=== PATIENT | male | born 1955 | race Caucasian/White ===

== ENCOUNTER 2017-09-03 11:39 | Day surgery (SDC) | payer OTHER ==
[2017-09-03] MEDS ORDERED: NS 1,000 ML IV ONE (11:43)
[2017-09-03] MEDS ORDERED: diphenhydrAMINE 25 MG CAP PO ONE ×2 (11:43→11:54)
[2017-09-03] MEDS ORDERED: MIDAZOLAM 2 MG/2 ML VIAL ONE ×3 (11:43→12:39)
[2017-09-03] MEDS ORDERED: fentaNYL 100 MCG/2 ML INJ ONE ×3 (11:43→13:11)
[2017-09-03] MEDS ORDERED: DIAZEPAM 5 MG TAB PO ONE (11:43)
[2017-09-03] MEDS ORDERED: ASPIRIN EC 325 MG TAB PO ONE ×2 (11:43→11:54)
[2017-09-03] MEDS ORDERED: FAMOTIDINE 20 MG TAB PO ONE (11:43)
[2017-09-03] MEDS ORDERED: BIVALIRUDIN 250 MG/5 ML VIAL IV ONE (11:43)
[2017-09-03] MEDS ORDERED: IOPAMIDOL (ISOVUE-370) 150 ML BTL IV ONE (11:44)
[2017-09-03] MEDS ORDERED: FAMOTIDINE 20 MG TAB ONE (11:54)
[2017-09-03] MEDS ORDERED: DIAZEPAM 5 MG TAB ONE (11:55)
--- NOTE | 2017-09-03 12:01 | CPEKG ---
Heart Rate: 70 RR Interval: 857 P-R Interval: 184 QRSD Interval: 106 QT Interval: 384 QTC Interval: 415 P [place]: 38 QRS [place]: -45 T Wave [place]: 51 EKG Severity - ABNORMAL ECG - EKG Impression: SINUS RHYTHM EKG Impression: LAD, CONSIDER LEFT ANTERIOR FASCICULAR BLOCK Electronically Signed By: Roland Henao 03-Sep-2017 20:35:46
[2017-09-03 12:03] LABS: % IMMATURE GRANULYOCYTES 0.3 % (0.0-1.1); ABSOLUTE IMMATURE GRANULOCYTES 0.03 10^3/uL (0.00-0.10); ADD DIFF? NO; ADD MORPH? NO; ADD SCAN? NO; ATYPICAL LYMPHOCYTE FLAG 0 (0-99); FRAGMENT RBC FLAG 0 (0-99); HEMATOCRIT 49.1 % (40.0-51.0); HEMOGLOBIN 16.9 g/dL (13.7-17.5); LEFT SHIFT FLG 0 (0-99); LIPEMIA HEMOLYSIS FLAG 90 (0-99); MEAN CELL HEMOGLOBIN 32.1 pg (27.9-34.1); MEAN CELL HEMOGLOBIN CONCENTR. 34.4 g/dL (32.4-36.7); MEAN CELL VOLUME 93.2 fL (81.5-99.8); MEAN PLATELET VOLUME 9.3 fL (8.7-11.7); PLATELET CLUMPS FLAG 0 (0-99); PLATELET COUNT 241 10^3/uL (150-400); RED BLOOD CELL COUNT 5.27 10^6/uL (4.40-6.38); RED CELL DISTRIBUTION WIDTH 13.2 % (11.5-15.2)
--- NOTE | 2017-09-03 12:07 | PDPROPOC ---
Sedation Plan of Care Sedation Plan of Care: vital signs stable, mental status noted, patient educated of risks, benefits, alternatives, patient can tolerate sedation ASA Classification: ASA 2 Planned drugs: fentanyl, midazolam Mallampati Score: Class 2 Mallampati Reference Image: Patient passed 3-3-2 rule?: Yes
--- NOTE | 2017-09-03 12:07 | PDHPUP ---
History & Physical Update H&P update statement: This history and physical update is based on an assessment of the patient which was completed after admission or registration (within 24 hours), but prior to the surgery/procedure. H&P update: H&P reviewed & patient examined, no change in patient's condition since H&P completed
[2017-09-03 12:10] LABS: INR 0.94 (0.83-1.16); PROTIME(PATIENT) 12.8 SEC (12.0-15.0)
[2017-09-03 12:15] LABS: ANION GAP 13 mEq/L (8-16); CALCIUM 9.7 mg/dL (8.5-10.4); CARBON DIOXIDE 23 mEq/l (22-31); CHLORIDE 105 mEq/L (97-110); CHOLESTEROL 207 mg/dL (140-220); CHOLESTEROL/HDL RATIO 3.39 RATIO (1.00-4.97); CREATININE 1.2 mg/dL (0.7-1.3); GLOMERULAR FILTRATION RATE > 60; GLUCOSE 94 mg/dL (70-100); HIGH DENSITY LIPOPROTEIN 61 mg/dL (40-65); LDL/HDL RATIO 2.02 RATIO (1.00-3.64); LOW DENSITY LIPOPROTEIN 123 mg/dL (80-100); MAGNESIUM 1.8 mg/dL (1.6-2.3); NON-HIGH DENSITY LIPOPROTEIN 146 mg/dL (90-129); POTASSIUM 4.1 mEq/L (3.5-5.2); SODIUM 141 mEq/L (134-144); TRIGLYCERIDE 115 mg/dL (40-150); VERY LOW DENSITY LIPOPROTEINS 23 mg/dL (8-25)
--- NOTE | 2017-09-03 12:59 | GCON ---
[f rep st] CONSULTATION DATE OF CONSULTATION: 09/03/2017 CHIEF COMPLAINT: We have been asked to see the patient with a chief complaint of chest pain. HISTORY OF PRESENT ILLNESS: The patient is a 62-year-old gentleman with risk factors including age a nd a history of smoking, who presents with a chief complaint of chest pain. The patient was in his [facility] state of health until several months ago, when he began to experience progressive symptoms of dy spnea on exertion while riding his bicycle. In addition, the patient began to experience episodes of chest pressure located in the left upper clavicular region. The chest pressure would not radiate an d was not associated with nausea, vomiting, or diaphoresis. The chest pressure and the dyspnea did n ot necessarily come simultaneously. The dyspnea is clearly associated with exertion and relieved wit h rest. The symptom of chest pain is more intermittent in nature. The patient was scheduled for a s tress test for risk stratification at [facility]. He had the stress test earlier this morning, wi th reproduction of chest discomfort, as well as significant ST-segment depression across the precordi al leads. He was brought to the cardiovascular center for evaluation and cardiac catheterization. T he patient denies a previous history of coronary artery disease. He reports intermittent white coat hypertension, but denies a history of high blood pressure. He denies hyperlipidemia and diabetes sully litus. He did smoke, but quit in the 80s. The patient remains moderately active, riding his bicycle on a regular basis, but has noted symptoms of significant increased dyspnea when having to go up a h ill or a slight incline, which was caused him to decrease his activity. The patient is also noted sy mptoms of fatigue later in the afternoon, which is a little bit unusual for him. No history of palpi tations, orthopnea, or PND. PAST MEDICAL HISTORY: 1. Chronic back pain. 2. Insomnia. 3. Status post shoulder surgery. 4. Status post lumbar surgery. 5. Status post knee surgery. MEDICATIONS: 1. Cyclobenzaprine. 2. Ibuprofen. 3. [place]. 4. Sildenafil. 5. Tramadol. ALLERGIES: No known drug allergies. SOCIAL HISTORY: Patient lives with his . He does not smoke. He remains active, riding a bicycl e. He denies problems with alcohol. FAMILY HISTORY: Negative for early onset of coronary artery disease. REVIEW OF SYSTEMS: 10-point Review of Systems is negative, except as noted in HPI. PHYSICAL EXAMINATION: GENERAL: The patient is resting in bed. He is somewhat anxious, but denies s ymptoms of chest discomfort at this time. VITAL SIGNS: Pulse is 87, blood pressure is 150/89, respi ratory rate 16, SaO2 greater than 90% on room air. LUNGS: Clear to auscultation bilaterally. CARDI OVASCULAR: Regular rate and rhythm. S1, S2. No murmurs, rubs, or gallops appreciated. ABDOMEN: S oft, nontender. Normoactive bowel sounds. EXTREMITIES: No clubbing, cyanosis, or edema. SKIN: No evidence of rash. NEURO: Patient is awake, alert, and oriented x3. Pulses: 2+ dorsalis pedis pul ses bilaterally. ASSESSMENT AND PLAN: The patient is a 62-year-old gentleman with cardiac risk factors, who presents with symptoms of chest pain and dyspnea on exertion concerning for a potential anginal equivalent. R ecent stress testing was markedly positive, with significant ST depression across the precordial lead s. Reviewed risks and benefits of cardiac catheterization to further evaluate his symptoms. We will arrange to have this performed. /[id number]/MODL
[2017-09-03] MEDS ORDERED: ATROPINE SULFATE 1 MG/10 ML SYR IVP PRN (13:16)
[2017-09-03] MEDS ORDERED: ONDANSETRON 4 MG/2 ML VIAL IVP PRN (13:16)
[2017-09-03] MEDS ORDERED: NITROGLYCERIN 0.4 MG BTL SL PRN (13:16)
--- NOTE | 2017-09-03 14:14 | CPIP ---
[f rep st] INVASIVE CARDIAC PROCEDURE DATE OF PROCEDURE: 09/03/2017 PROCEDURE: 1. Coronary angiography. 2. Left ventriculography. INDICATION: 1. Dyspnea on exertion and chest pressure, concerning for crescendo angina. 2. Abnormal exercise tolerance test. ACCESS: Patient was prepped and draped in sterile fashion. 1% lidocaine was used to anesthetize the right inguinal region. A 6-[place] introducer sheath was placed selectively into the right common fe moral artery via modified Seldinger technique. CORONARY ANGIOGRAPHY: A 6-[place] JL4 was advanced to the left main coronary artery and images obtain ed. The left main coronary artery bifurcated into an LAD and circumflex coronary arteries. The left main coronary artery appeared normal. The left anterior descending coronary artery had mild diffuse disease throughout. In the proximal segment, there was a single discrete 20% stenosis present. In the mid segment, there was a segmental 20% stenosis present. The left anterior descending coronary a rtery gave rise to 1 prominent diagonal branch as well as several smaller diagonal branches. The anatoly gonal branches appeared free of any significant disease. Circumflex coronary artery is a large vesse l but was nondominant. Circumflex coronary artery gave rise to 3 OM branches. The circumflex [place] ry artery and its complement of OM branches appeared normal. A 6-[place] JR4 was advanced to the righ t coronary artery and images obtained. The right coronary artery was dominant. The right coronary a rtery had mild luminal irregularities throughout. There was no stenosis greater than 10%. LEFT VENTRICULOGRAPHY: A 6-[place] pigtail catheter was advanced into the left ventricle and images o btained. Left ventricle is normal size, had normal systolic function. Estimated ejection fraction w as 65%. COMPLICATIONS: None. CONCLUSIONS: 1. Mild coronary artery disease without flow limitation. 2. Normal left ventricular systolic function. 3. Plan is for medical management. 4. Consider CT angiogram to evaluate ascending aorta as it appears to be mildly dilated during left ventriculography. /[id number]/MODL
--- NOTE | 2017-09-04 11:17 | ECHO ---
[email or web address] [address] Main: [phone] Fax: [email or web address] Echocardiogram Name: ZARINA FERNANDEZ MR#: [id number] Study Date: 09/03/2017 Study Time: 03:54 PM Date of : 1955 Age: 62 year(s) Height: 185.4 cm (73 in.) Weight: 107.5 kg (237 lb.) BSA: 2.31 m2 Gender: Male Examination: Echo Indication: Post Cath Image Quality: Contrast: Requested by: Kvng Esqueda BP: / Heart Rate: Rhythm: Indication: Post Cath Procedure Staff Scrap Burner: Adonay Govea Reading Physician: Kvng Esqueda Requesting Provider: Conclusions: Normal size left ventricle. Normal global systolic LV function. EF is 74 %. The mitral valve is normal in appearance and function. Trivial mitral valve regurgitation. Aortic valve is not well visualized. No aortic valve stenosis is present. There is no aortic valve regurgitation. Mildly dilated ascending aorta measuring 3.8 cm. The pulmonary artery pressure estimate is with in normal limits No old studies for comparison. Measurements: Chambers Valvular Assessment AV/MV Valvular Assessment TV/PV Normal Normal Normal Name Value Range Name Value Range Name Value Range IVSd (2D): 1.0 cm (0.6 cm-1.1 MV E Vmax: 0.46 m/s ( - ) TR Vmax: 2.67 mm/s ( - ) cm) MV A Vmax: 0.57 m/s ( - ) TR PGmax: 29 mmHg ( - ) LVDd (2D): 5.0 cm (4.2 cm-5.9 MV E/A: 0.81 ( - ) syst. PAP: 34 mmHg ( - ) cm) PV Vmax: 0.96 m/s (0.6 m/s-0.9 LVDs (2D): 2.8 cm (2.1 cm-4 m/s) cm) PV PGmax: 4 mmHg ( - ) LVPWd (2D): 1.0 cm (0.6 cm-1 cm) LVEF (2D): 74 (>=54 %) Continued Measurements: Chambers Valvular Assessment AV/MV Valvular Assessment TV/PV Patient: ZARINA FERNANDEZ Study Date: 09/03/2017 Page 1 of 2 03:54 PM Name Value Name Value Name Value LADs Lon.0 cm MV E' Septal: 0.06 m/s CVP (est.): 5 mmHg LA Area: 17.5 cm2 MV E/E' Septal: 7.60 LA Volume: 47 ml MV E/E' Lateral: 7.40 LA Volume Index: 20.3 ml/m2 Additional Vessels Name Value Ao Ascendin.8 cm Findings: Left Ventricle: Normal size left ventricle. No LV hypertrophy. Normal global systolic LV function. EF is 74 %. No regional wall motion abnormality. Diastolic dysfunction is present. . Right Ventricle: Normal size right ventricle. Left Atrium: The left atrium is normal in size. Right Atrium: The right atrium is normal in size. Mitral Valve: The mitral valve is normal in appearance and function. Trivial mitral valve regurgitation. Aortic Valve: Aortic valve is not well visualized. No aortic valve stenosis is present. There is no aortic valve regurgitation. Tricuspid Valve: The tricuspid valve is normal in appearance and function. Pulmonic Valve: Pulmonary valve not visualized. Aorta: Mildly dilated ascending aorta measuring 3.8 cm. Pericardium: No pericardial effusion. (No Signature Object) Patient: ZARINA FERNANDEZ Study Date: 09/03/2017 Page 2 of 2 03:54 PM [id number]
== END 2017-09-03 18:19 | disposition home or self-care (01) ==
LOC: FCATH 11:39
PROVIDERS: ATTEND Internal Medicine Cardiovascular Disease
DX: R06.00 Dyspnea, unspecified (principal); R94.39 Abnormal result of other cardiovascular function study; R07.89 Other chest pain; M54.9 Dorsalgia, unspecified
CPT/HCPCS: J0583; J1644; J2250; J3010; Q9967